=== PATIENT | female | born 2000 | race Caucasian/White ===

== ENCOUNTER 2023-01-23 12:16 | Outpatient (CLI) | payer BC, SELFPAY ==
[2023-01-23 13:01] LABS: Hematocrit 44.3 % (37.0-47.0); Hemoglobin 14.3 g/dL (12.0-15.0); Mean Corpuscular HGB Conc 32.3 g/dl (32-36); Mean Corpuscular Hemoglobin 28.7 pg (26-34); Mean Corpuscular Volume 88.8 fl (80-100); Platelet Count Result 343 k/mm3 (150-375); Red Blood Count 4.99 M/mm3 (4.2-5.4); Red Cell Distribution Width 12.8 % (11.5-14.5); White Blood Count 8.7 K/mm3 (4.5-10.0)
[2023-01-23 13:23] LABS: Alanine Aminotransferase 22 U/L (6-35); Albumin Level 4.2 g/dL (3.5-5.1); Alkaline Phosphatase 51 U/L (38-126); Anion Gap 5 mmol/L (8-16); Aspartate Amino Transferase 28 U/L (14-36); Bilirubin,Total 0.9 mg/dL (0.2-1.3); Blood Urea Nitrogen 12 mg/dL (7-17); CRP < 0.5 mg/dL (<1.0); Calcium 8.9 mg/dL (8.4-10.2); Carbon Dioxide 28 mmol/L (22-30); Chloride 104 mmol/L (98-107); Estimated Glomerular Filt Rate > 60; Glucose 81 mg/dL (65-110); Potassium 4.3 mmol/L (3.4-5.0); Sodium 137 mmol/L (137-145)
[2023-01-23 13:37] LABS: Erythrocyte Sedimentation Rate 2 mm/hr (0-20)
== END 2023-01-23 12:17 | disposition home or self-care (01) ==
PROVIDERS: PCP Family Medicine; Visit Provider Nurse Practitioner
DX: R19.7 Diarrhea, unspecified (principal); R10.32 Left lower quadrant pain; R15.9 Full incontinence of feces
CPT/HCPCS: 36415; 80053; 84443; 85027; 85652; 86140

== ENCOUNTER 2023-01-24 09:25 | Outpatient (CLI) | payer BC, SELFPAY ==
[2023-01-31 18:07] LABS: Pancreatic Elastase, Stool >500 mcg/g
[2023-01-31 22:08] LABS: Calprotectin, Stool 46 mcg/g
== END 2023-01-24 09:26 | disposition home or self-care (01) ==
LOC: ANHLAB 09:26
PROVIDERS: PCP Family Medicine; Visit Provider Nurse Practitioner
DX: R19.7 Diarrhea, unspecified (principal); R15.9 Full incontinence of feces; R10.32 Left lower quadrant pain
CPT/HCPCS: 82653; 83993

== ENCOUNTER 2024-08-25 10:46 | Outpatient (CLI) | payer BC, SELFPAY ==
--- OUTSIDE RECORDS SUMMARY | 2024-08-25 12:19 | XMS_ITS | Encounter Summary ---
Author Organization [facility] Address [address] [place] [address] Care Team Providers Care Actuarial Mathematician Name Role Phone Lilli Feliciano MD Primary Care Provider [phone] Encounter Details Date Type Department Care Team (Late st Contact Info) Description 05/25/2019 [facility] Outpatient Visit [facility] [address] [place] [address] Document, Scanned Social History Tobacco Use Types Packs/Day Years Used Date Smoking Tobacco: Never Assessed Sex and Gender Information Value Date Recorded Sex Assigned at Not on file Gender Identity Not on file Sexual Orientation Not on file documented as of this encounter Plan of Treatment Not on file documented as of this encounter Goals Goal Patient Goal Type Associated Problems Recent Progress Patient-Stated? Author Use safety retraint in car Lifestyle On track( 020 11:40 AM CDT) No Simona Pineda RN documented as of this encounter Visit Diagnoses Not on filedocumented in this encounter Care Teams Actuarial Mathematician Relationship Specialty Start Date End Date Lilli Feliciano MD PCP - General Pediatrics 07/21/18 documented as of this encounter
--- OUTSIDE RECORDS SUMMARY | 2024-08-25 12:19 | XMS_ITS | Clinical Summary ---
Author Organization [facility] [employer] Address [address] [place] [address] Care Team Providers Care Organ Pipe Voicer Name Role Phone Lilli Feliciano MD Primary Care Provider [phone] Source Comments [facility] [employer],non-owned Affiliates and Associated Physician Practices is amultiple site organization consisting of ambulatory clinics and hospital sitesin [place], [place], [place] and [place]. This disclosure is being madepursuant to the Care Everywhere program and may not contain all information available regarding this patient. Last updated 18.[facility] [employer] Allergies No known active allergies Medications * Be aware that medications may not be up to date on this document. Alwaysverify current medications with the patient. 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 Malocclusion 03/02/2020 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 Arthralgia of both ankles 03/02/2020 Cross bite 03/02/2020 Jaw pain 03/02/2020 Pain in joint, multiple sites 03/02/2020 Underweight 03/05/2014 Resolved Problems Problem Noted Date Diagnosed Date Resolved Date Asthma, moderate persistent, well-controlled 3 03/25/2017 Encounters Date Type Department Care Team Description 08/18/2024 Telephone [facility] - Pediatrics [address] [place] [address] [address] [place] [address] Lilli Feliciano MD Record Request from Last 3 Months Immunizations Name Administration Dates Next Due Cov[employer]hes[employer] primary monoval ent 12+ yr 0.3mL Purple cap 01/11/2021,12/21/2020 DTaP VACCINE IM (6wk-6yrs) 10/30/2007,,2002,09/03,2002 HEP A PEDS 2 DOSE 10/30/2007,12/18/2006 HEP B VACCINE, PED/ADOL 01/27/2003,2002, HIB BOOSTER 11/10/2003, 3,2002,07/02 MENINGOCOCCAL CONJUGATE (MCV4P) 02/16/2019,03/04 MMR 12/18/2006,05/09/2003 PNEUMOCOCCAL CONJ, PEDS 05/09/2003,11/22,2002,07/02 POLIO IPV 10/30/2007, 4,2002,07/02 PPD 05/09/2003 TDAP (7yrs+) 03/04/2014 VARICELLA 12/18/2006,11/10/2003 Family History Medical History Relation Name Comments None Known Father Diabetes - Type 2 Maternal Grandfather Diabetes - Type 2 Maternal Grandmother None Known Mother Thyroid Disease Paternal Aunt Craniofacial Syndrome Neg Hx Lupus Neg Hx Psoriasis Neg Hx Relation Name Status Comments Father Maternal Grandfather Maternal Grandmother Mother Paternal Aunt Social History Tobacco Use Types Packs/Day Years Used Date Smoking Tobacco: Passive Smo ke Exposure - Never Smoker Smokeless Tobacco: Never Alcohol Use Standard Drinks/Week Comments Never 0 (1 standard drink = 0.6 oz pur e alcohol) AUDIT-C Answer Date Recorded Q1: How often do you have a drink containing alc ohol? 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 OPERATOR Inhaled Oxygen Concentration - - Weight 41.3 kg (91 lb) 03/02/2021 10:48 AM CDT Height 156.2 cm (5' 1.5 ) 03/02/2021 10:48 AM CD T Body Mass Index 16.92 03/02/2021 10:48 AM CDT Plan of Treatment Health Maintenance Due Date Last Done Comments PAP SMEAR 2002 HIV SCREENING 2017 CHLAMYDIA/GONORRHEA SCREENING 2018 MENINGOCOCCAL (Group B) VACC INE (1 of 2 - Standard) 2018 HEPATITIS C SCREENING 04/19/2020 DTAP/TDAP/TD VACCINES (7 - T d or Tdap) 03/04/2024 03/04/2014, 10/30/2007, 11/10/2003, Additional history exists COVID-19 VACCINE (3 - 2023-2 5 season) 2024 01/11/2021, 12/21/2020 INFLUENZA VACCINE (#1) 2024 DEPRESSION SCREENING 07/21/2024 ZOSTER VACCINE (1 of 2) 2052 HEPATITIS B VACCINE Completed 01/27/2003, 2002, 2002 PNEUMOCOCCAL VACCINE Completed 05/09/2003, 2002, 2002, Additional history exists HIB VACCINE Completed 11/10/2003, 05/0 11/2002, 2002, Additional history exists MENINGOCOCCAL VACCINE Completed 02/16/2019, 014 HPV VACCINE Discontinued Goals Goal Patient Goal Type Associated Problems Recent Progress Patient-Stated? Author Use safety retraint in car Lifestyle On track( 020 11:40 AM CDT) Simona Price RN Care Teams Organ Pipe Voicer Relationship Specialty Start Date End Date Lilli Feliciano MD PCP - General Pediatrics 07/21/18
--- OUTSIDE RECORDS SUMMARY | 2024-08-25 12:19 | XMS_ITS | Clinical Summary ---
Author Organization [facility] Address [address] [place] [id number] Care Team Providers Care Furs Salesperson Name Role Phone Unavailable Primary Care Provider Unavailabl e Allergies No known active allergies Social History Tobacco Use Types Packs/Day Years Used Date Smoking Tobacco: Never Assessed Comments Unknown Sex and Gender Information Value Date Recorded Sex Assigned at Not on file Legal Sex Female 2:39 PM CDT Gender Identity Not on file Sexual Orientation Not on file Plan of Treatment Health Maintenance Due Date Last Done Comments CHLAMYDIA SCREENING (ANNUAL) 11-24 YEARS 2013 HPV VACCINES (1 - 3-dose series) 2017 CERVICAL CANCER SCREENING 2023 INFLUENZA VACCINE (#1) 2024 DTAP/TDAP/TD VACCINES (7 - Td or Tdap) 03/04/2024 03/04/2014, 10/30/2007, 11/10/2003, Additional history exists COVID-19 Vaccine ( season) 2024 01/11/2021, 12/21/2020 HEPATITIS B VACCINES Completed 01/27/2003, 2002, 2002 PNEUMOCOCCAL VACCINE 0-64 YEARS Aged Out No longer eligible based on patient's age to complete this topic Insurance BC[employer] BLUE ACCESS/TRUE BLUE PPO
--- OUTSIDE RECORDS SUMMARY | 2024-08-25 12:19 | XMS_ITS | Patient Health Summary ---
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 This disclosure is being madepursuant to the Care Everywhere program and may not contain all information available regarding this patient. Last updated 18.[facility] Allergies No known active allergies Medications * Be aware that medications may not be up to date on this document. Alwaysverify current medications with the patient. 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 Malocclusion 03/02/2020 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 Arthralgia of both ankles 03/02/2020 Cross bite 03/02/2020 Jaw pain 03/02/2020 Pain in joint, multiple sites 03/02/2020 Underweight 03/05/2014 Resolved Problems Problem Noted Date Diagnosed Date Resolved Date Asthma, moderate persistent, well-controlled 3 03/25/2017 Immunizations * Covid Hypercontext primary monovalent 12+ yr 0.3mL Purple cap(Given 01/11/2021, 12/21/2020) * DTaP VACCINE IM (6wk-6yrs)(Given 10/30/2007, 11/10/2003, 2002, 2002, 2002) * HEP A PEDS 2 DOSE(Given 10/30/2007, 12/18/2006) * HEP B VACCINE, PED/ADOL(Given 01/27/2003, 2002, 2002) * HIB BOOSTER(Given 11/10/2003, 2002, 2002, 2002) * MENINGOCOCCAL CONJUGATE (MCV4P)(Given 02/16/2019, 03/04/2014) * MMR(Given 12/18/2006, 05/09/2003) * PNEUMOCOCCAL CONJ, PEDS(Given 05/09/2003, 2002, 2002, 2002) * POLIO IPV(Given 10/30/2007, 11/10/2003, 2002, 2002) * PPD(Given 05/09/2003) * TDAP (7yrs+)(Given 03/04/2014) * VARICELLA(Given 12/18/2006, 11/10/2003) Social History Tobacco Use Types Packs/Day Years [...] CDT Oxygen Saturation 97% 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 Oxygen Concentration - - Weight 41.3 kg (91 lb) 03/02/2021 10:48 AM CDT Height 156.2 cm (5' 1.5 ) 03/02/2021 10:48 AM CD T Body Mass Index 16.92 03/02/2021 10:48 AM CDT Procedures * TSH(Performed 03/17/2020) Performed for Arthralgia of both ankles, Jaw pain * TISSUE TRANSGLUTAMINASE AB IGA(Performed 03/17/2020) Performed for Arthralgia of both ankles, Jaw pain * RHEUMATOID FACTOR BLOOD QUANTITATIVE(Performed 03/17/2020) Performed for Arthralgia of both ankles, Jaw pain * CYCLIC CITRUL PEPTIDE ANTIBODY IGG/IGA (CCP)(Performed 03/17/2020) Performed for Arthralgia of both ankles, Jaw pain * C-REACTIVE PROTEIN(Performed 03/17/2020) Performed for Arthralgia of both ankles, Jaw pain * COMPREHENSIVE METABOLIC PANEL(Performed 03/17/2020) Performed for Arthralgia of both ankles, Jaw pain * JAZMIN BLOOD SCREEN W/REFLEX TITER(Performed 03/17/2020) Performed for Arthralgia of both ankles, Jaw pain * IMMUNOGLOBULINS IGG/IGM/IGA PANEL(Performed 03/17/2020) Performed for Arthralgia of both ankles, Jaw pain * ERYTHROCYTE SEDIMENTATION RATE(Performed 03/17/2020) Performed for Arthralgia of both ankles, Jaw pain * CBC W AUTO DIFFERENTIAL(Performed 03/17/2020) Performed for Arthralgia of both ankles, Jaw pain * MRI TMJ BILATERAL JOINTS(Performed 03/17/2020) Performed for Condylar resorption of temporomandibular joint, Jaw anomaly, Malocclusion, Unilateralcondylar hypoplasia of mandible, Overjet * XR ANKLE LEFT 2VW(Performed 03/17/2020) Performed for Arthralgia of both ankles * XR ANKLE RIGHT 2VW(Performed 03/17/2020) Performed for Arthralgia of both ankles * CT FACIAL BONES WO CONTRAST(Performed 03/17/2020) Performed for Condylar resorption of temporomandibular joint, Jaw anomaly, Malocclusion, Unilateralcondylar hypoplasia of mandible, Overjet * LIPID PROFILE+GLUCOSE - POINT OF CARE (AMB)(Performed 02/16/2019) Performed for Well adolescent visit * CULTURE STREP GROUP A(Performed 06/01/2015) Performed for Acute pharyngitis, unspecified etiology * STREP A SCREEN - POINT OF CARE (AMB)(Performed 06/01/2015) Performed for Acute pharyngitis, unspecified etiology * XR HIP RIGHT 2VW OR MORE(Performed 11/18/2014) Performed for Right hip pain * CULTURE AEROBIC+GRAM STAIN(Performed 10/19/2012) Performed for Sore throat * STREP A SCREEN - POINT OF CARE (AMB)(Performed 10/19/2012) Performed for Sore throat * STREP A SCREEN - POINT OF CARE (AMB)(Performed 11/11/2011) Performed for Streptococcal pharyngitis * CULTURE AEROBIC+GRAM STAIN(Performed 11/12/2010) Performed for Acute pharyngitis * STREP A SCREEN - POINT OF CARE (AMB)(Performed 11/12/2010) Performed for Acute pharyngitis * STREP A SCREEN - POINT OF CARE (AMB)(Performed 10/31/2010) Performed for Sore throat * CULTURE AEROBIC+GRAM STAIN(Performed 10/31/2010) Performed for Sore throat * STREP A SCREEN - POINT OF CARE (AMB)(Performed 06/29/2010) Performed for Streptococcal sore throat * CULTURE AEROBIC+GRAM STAIN(Performed 06/08/2009) Performed for Acute Pharyngitis * STREP A SCREEN - POINT OF CARE (AMB)(Performed 06/08/2009) Performed for Acute Pharyngitis Results * CYCLIC CITRUL PEPTIDE ANTIBODY IGG/IGA (CCP) (03/17/2020 3:14 PM CDT) CCP Antibodies IgG/IgA 4 0 - 19 units 03/19/2020 9:06 PM CDT [facility] ([facility]) Comment: ?Negative ? <20 ?Weak positive ?20 - 39 ?Moderate positive ??40 - 59 ?Strong positive ?>59 Blood BLOOD SPECIMEN / Unknown Venipuncture / Unknown 03/17/2020 3:14 PM CDT 03/17/2020 3:27 PM CDT Narrative [facility] ([facility]) - 03/19/2020 9:06 PM CDT Performed at: ??01 - [facility] [address] ??[id number] Sound Installation Worker: Mir Torres MD, Phone: ??[phone] Andrei Samayoa DO LAB - SEROLO GY ORDERABLES [facility] ([facility]) [address] [place] [address] * TISSUE TRANSGLUTAMINASE AB IGA (03/17/2020 3:14 PM CDT) TTG Antibody IgA <2 0 - 3 U/mL 03/18/2020 6:07 PM CDT [facility] ([facility]) Comment: ?Negative ?0 - ??3 ?Weak Positive ?? 4 - 10 ?Positive ? >10 Tissue Transglutaminase (tTG) has been identified as the endomysial antigen. ??Studies have demonstr- ated that endomysial IgA antibodies have over 99% specificity for gluten sensitive enteropathy. Blood BLOOD SPECIMEN / Unknown Venipuncture / Unknown 03/17/2020 3:14 PM CDT 03/17/2020 3:27 PM CDT Narrative [facility] ([facility]) - 03/18/2020 6:07 PM CDT Performed at: ??01 - [facility] [place] [address] [place], [place] ??[id number] Sound Installation Worker: Perico Bennett PhD, Phone: ??[phone] Andrei Samayoa DO LAB - SEROLO GY ORDERABLES Performing Organization Address [facility]/ZIP Co de Phone Number [facility] ([facility]) [address] [place] [address] * RHEUMATOID FACTOR BLOOD QUANTITATIVE (03/17/2020 3:14 PM CDT) Rheumatoid Factor Quantitative 12 <15 IU/mL 03/17/2020 4:05 PM CDT [facility] Blood BLOOD SPECIMEN / Unknown Venipuncture / Unknown 03/17/2020 3:14 PM CDT 03/17/2020 3:26 PM CDT Andrei Samayoa DO LAB - CHEMIS TRY ORDERABLES Performing Organization Address [facility]/ZIP Co de Phone Number [facility] [address] [place] [address] * C-REACTIVE PROTEIN (03/17/2020 3:14 PM CDT) C-Reactive Protein <0.20 <=0.50 mg/dL 03/17/2020 4:05 PM CDT [facility] Blood BLOOD SPECIMEN / Unknown Venipuncture / Unknown 03/17/2020 3:14 PM CDT 03/17/2020 3:26 PM CDT Andrei Samayoa DO LAB - CHEMIS TRY ORDERABLES Performing Organization Address City/[facility]/ZIP Co de Phone Number [facility] [address] [place] [address] * JAZMIN BLOOD SCREEN W/REFLEX TITER (03/17/2020 3:14 PM CDT) Pathologist [facility] JAZMIN Negative Negative 03/20/2020 12:21 PM CDT [facility] Blood BLOOD SPECIMEN / Unknown Venipuncture / Unknown 03/17/2020 3:14 PM CDT 03/17/2020 3:27 PM CDT [facility] - 03/20/2020 12:21 PM CDT Methodology: Indirect Immunofluorescence Assay (IFA) utilizing Hep-2-Gamma cells. Andrei Kerns Yao DO LAB - CHEMIS TRY ORDERABLES Performing Organization Address [facility] Co de Phone Number [facility] [address] [place] [address] * (ABNORMAL) COMPREHENSIVE METABOLIC PANEL (03/17/2020 3:14 PM CDT) Pathologist [facility] Glucose 83 70 - 105 mg/dL 03/17/2020 3:57 PM CDT [facility] Sodium 142 136 - 145 mmol/L 03/17/2020 3:57 PM CDT [facility] Potassium 4.7 3.5 - 5.1 mmol/L 03/17/2020 3:57 PM CDT [facility] Chloride 108(H) 98 - 107 mmol/L 03/17/2020 3:57 PM CDT [facility] CO2 22 20 - 28 mmol/L 03/17/2020 3:57 PM CDT [facility] Calcium 9.05(L) 9.08 - 10.48 mg/dL 03/17/2020 3:57 PM CDT [facility] Anion Gap 12 5 - 20 mmol/L 03/17/2020 3:57 PM CDT [facility] BUN 10.9 5.3 - 18.7 mg/dL 03/17/2020 3:57 PM CDT [facility] Creatinine 0.79 0.61 - 1.07 mg/dL 03/17/2020 3:57 PM CDT [facility] Alkaline Phosphatase 56(L) 100 - 390 U/L 03/17/2020 3:57 PM CDT [facility] ALT 13 8 - 65 U/L 03/17/2020 3:57 PM CDT [facility] AST 26 3 - 35 U/L 03/17/2020 3:57 PM CDT [facility] Protein Total 7.4 6.3 - 8.2 gm/dL 03/17/2020 3:57 PM CDT [facility] Albumin 4.2 3.3 - 4.9 gm/dL 03/17/2020 3:57 PM CDT [facility] Bilirubin Total 0.7 0.3 - 1.2 mg/dL 03/17/2020 3:57 PM CDT [facility] eGFR by MDRD 03/17/2020 3:57 PM CDT [facility] Comment: eGFR calculations are not performed for children under 18 years old. eGFR by MDRD 03/17/2020 3:57 PM CDT [facility] Comment: eGFR calculations are not performed for children under 18 years old. Blood BLOOD SPECIMEN / Unknown Venipuncture / Unknown 03/17/2020 3:14 PM CDT 03/17/2020 3:26 PM CDT Andrei Samayoa DO LAB - CHEMIS TRY ORDERABLES Performing Organization Address City/[facility]/ZIP Co de Phone Number [facility] [address] [place] [phone] * TSH (03/17/2020 3:14 PM CDT) TSH 0.97 0.35 - 4.95 uIU/mL 03/17/2020 4:25 PM CDT [facility] Blood BLOOD SPECIMEN / Unknown Venipuncture / Unknown 03/17/2020 3:14 PM CDT 03/17/2020 3:26 PM CDT Andrei Samayoa DO LAB - CHEMIS TRY ORDERABLES Performing Organization Address [facility]/ZIP Co de Phone Number [facility] [address] [place] [address] * MRI TMJ BILATERAL JOINTS (03/17/2020 3:13 PM CDT) Anatomical Region Laterality Modality Head Magnetic Resonan ce 03/17/2020 4:58 PM CDT Impressions 03/19/2020 2:23 PM CDT Symmetric, small, flattened appearing mandibular condyles. Findings may correlate with mandibular hypoplasia versus idiopathic condylar resorption. *Reading Radiologist: Julisa Pena on 03/19/2020 at 2:23 PM Narrative 03/19/2020 2:23 PM CDT INDICATION: 19-year-old female with temporomandibular joint disorder COMPARISON: CT of same date. TECHNICAL: Multiplanar, multisequence imaging of the temporomandibular joints was performed without and with IV contrast as per departmental protocol. 3.7 cc of Gadavist were administered intravenously FINDINGS: No intracranial abnormality is seen. The temporomandibular grooves are normal in appearance. The mandibular condyles are somewhat small in appearance with associated flattening. There is no evidence of underlying marrow edema. There is normal motion of the condyles over the articular eminences. The articular discs are normal and without displacement between open and closed mouth views. No abnormal synovial enhancement or joint effusion is seen bilaterally. Procedure Note Julisa Pena MD - 03/19/2020 INDICATION: 19-year-old female with temporomandibular joint disorder COMPARISON: CT of same date. TECHNICAL: Multiplanar, multisequence imaging of the temporomandibular joints was performed without and with IV contrast as per departmental protocol. 3.7 cc of Gadavist were administered intravenously FINDINGS: No intracranial abnormality is seen. The temporomandibular grooves are normal in appearance. The mandibular condyles are somewhat small in appearance with associated flattening. There is no evidence of underlying marrow edema. There is normal motion of the condyles over the articular eminences. The articular discs are normal and without displacement between open and closed mouth views. No abnormal synovial enhancement or joint effusion is seen bilaterally. IMPRESSION Symmetric, small, flattened appearing mandibular condyles. Findings may correlate with mandibular hypoplasia versus idiopathic condylar resorption. *Reading Radiologist: Julisa Pena on 03/19/2020 at 2:23 PM Lupe Moody HOUSEKEEPER CLEANING COOKING-MRI SPECIAL PROCEDURES TECHNOLOGIST MR ORDERABLES * ESR - SED RATE WESTERGREN AUTO (03/17/2020 3:13 PM CDT) Pathologist [facility] Erythrocyte Sedimentation Rate Automated 3 0 - 20 MM/HR 03/17/2020 3:43 PM CDT [facility] Blood BLOOD SPECIMEN / Unknown Venipuncture / Unknown 03/17/2020 3:13 PM CDT 03/17/2020 3:26 PM CDT Andrei Kerns Yao DO LAB - HEMATO LOGY ORDERABLES [facility] [address] [place] [address] * (ABNORMAL) CBC W AUTO DIFFERENTIAL (03/17/2020 3:13 PM CDT) [facility] WBC 11.0 4.5 - 11.0 x10E9/L 03/17/2020 3:45 PM CDT [facility] WBC Corrected 03/17/2020 3:45 PM CDT [facility] RBC 4.82 4.10 - 5.10 x10E12/L 03/17/2020 3:45 PM CDT [facility] Hemoglobin 13.4 12.0 - 16.0 gm/dL 03/17/2020 3:45 PM CDT [facility] Hematocrit 40.6 36.0 - 47.0 % 03/17/2020 3:45 PM CDT [facility] MCV 84.2 78.0 - 98.0 fl 03/17/2020 3:45 PM CDT [facility] MCH 27.8 25.0 - 35.0 pg 03/17/2020 3:45 PM CDT [facility] MCHC 33.0 31.0 - 37.0 gm/dL 03/17/2020 3:45 PM CDT [facility] Platelet Count 328 100 - 400 x10E9/L 03/17/2020 3:45 PM CDT [facility] RDW-CV 12.7 11.5 - 14.0 % 03/17/2020 3:45 PM CDT [facility] MPV 10.5(H) 6.0 - 9.5 fl 03/17/2020 3:45 PM CDT [facility] Neutrophils % 63.0 31.0 - 78.0 % 03/17/2020 3:45 PM CDT [facility] Lymphocytes % 28.9 13.0 - 54.0 % 03/17/2020 3:45 PM CDT [facility] Monocytes % 6.8 4.0 - 13.0 % 03/17/2020 3:45 PM CDT [facility] Eosinophils % 0.5 0.0 - 8.0 % 03/17/2020 3:45 PM CDT [facility] Basophils % 0.5 % 03/17/2020 3:45 PM CDT [facility] Immature Granulocytes 0.3 % 03/17/2020 3:45 PM CDT [facility] Neutrophil Absolute 6.90 1.4 - 8.58 x10E9/L 03/17/2020 3:45 PM CDT [facility] Lymphocytes Absolute 3.16 0.59 - 5.94 x10E9/L 03/17/2020 3:45 PM CDT [facility] Monocytes Absolute 0.75 0.18 - 1.43 x10E9/L 03/17/2020 3:45 PM CDT [facility] Eosinophils Absolute 0.06 0 - 0.88 x10E9/L 03/17/2020 3:45 PM CDT [facility] Basophils Absolute 0.05 0 - 0.22 x10E9/L 03/17/2020 3:45 PM CDT [facility] Immature Granulocytes Absolute 0.03 0 - 0.11 x10E9/L 03/17/2020 3:45 PM CDT [facility] nRBC Auto 0 /100 WBC 03/17/2020 3:45 PM CDT [facility] Blood BLOOD SPECIMEN / Unknown Venipuncture / Unknown 03/17/2020 3:13 PM CDT 03/17/2020 3:26 PM CDT Andrei Samayoa DO LAB - HEMATO LOGY ORDERABLES Performing Organization Address City/State/[facility] Co de Phone Number [facility] [address] [place] [address] * IMMUNOGLOBULINS PANEL (inc IgA, IgG, IgM) (03/17/2020 3:13 PM CDT) Pathologist [facility] IgA 127 65 - 421 mg/dL 03/17/2020 4:05 PM CDT [facility] IgG 967 552-1,631 mg/dL 03/17/2020 4:05 PM CDT [facility] IgM 84 33 - 293 mg/dL 03/17/2020 4:05 PM CDT [facility] Blood BLOOD SPECIMEN / Unknown Venipuncture / Unknown 03/17/2020 3:13 PM CDT 03/17/2020 3:26 PM CDT Andrei Samayoa DO LAB - CHEMIS TRY ORDERABLES [facility] [place] [address] * XR ANKLE LEFT 2VW (03/17/2020 1:57 PM CDT) Anatomical Region Laterality Modality Lower Extremity Radiographic Raquel ging 03/17/2020 12:4 0 PM CDT Impressions 03/20/2020 8:47 PM CDT No fracture or dislocation. Reading Radiologist: Stu Springer on 03/20/2020 at 8:47 PM Narrative 03/20/2020 8:47 PM CDT INDICATION: Pain COMPARISON: None available. TECHNIQUE: Frontal and lateral views of the left ankle. FINDINGS: There is no fracture or osseous abnormality. The joint alignment, including the tibiotalar articulation, is normal. The soft tissues are normal without evidence of joint effusion. Procedure Note Rubio Springer DO - 03/20/2020 INDICATION: Pain COMPARISON: None available. TECHNIQUE: Frontal and lateral views of the left ankle. FINDINGS: There is no fracture or osseous abnormality. The joint alignment, including the tibiotalar articulation, is normal. The soft tissues are normal without evidence of joint effusion. IMPRESSION No fracture or dislocation. Reading Radiologist: Stu Springer on 03/20/2020 at 8:47 PM Andrei Samayoa DO DIAGNOSTIC I MAGING ORDERABLES * XR ANKLE RIGHT 2VW (03/17/2020 1:56 PM CDT) Anatomical Region Laterality Modality Lower Extremity Radiographic Raquel ging 03/17/2020 12:4 1 PM CDT Impressions 03/20/2020 8:48 PM CDT No fracture or dislocation. Reading Radiologist: Stu Springer on 03/20/2020 at 8:48 PM Narrative 03/20/2020 8:48 PM CDT INDICATION: Pain COMPARISON: None available. TECHNIQUE: Frontal and lateral views of the right ankle. FINDINGS: There is no fracture or osseous abnormality. The joint alignment, including the tibiotalar articulation, is normal. The soft tissues are normal without evidence of joint effusion. Procedure Note Rubio Springer, DO - 03/20/2020 INDICATION: Pain COMPARISON: None available. TECHNIQUE: Frontal and lateral views of the right ankle. FINDINGS: There is no fracture or osseous abnormality. The joint alignment, including the tibiotalar articulation, is normal. The soft tissues are normal without evidence of joint effusion. IMPRESSION No fracture or dislocation. Reading Radiologist: Stu Springer on 03/20/2020 at 8:48 PM Andrei Samayoa DO DIAGNOSTIC I MAGING ORDERABLES * CT FACIAL BONES WO CONTRAST (03/17/2020 1:52 PM CDT) Anatomical Region Laterality Modality Head Computed Tomogra phy 03/17/2020 3:11 PM CDT Impressions 03/17/2020 4:32 PM CDT Symmetric, small, flattened appearing mandibular condyles. Findings may correlate with condylar hypoplasia versus idiopathic condylar resorption. No evidence of osseous erosion. Temporomandibular grooves are normal in appearance. Dictated by Radha Juares on 03/17/2020 3:16 PM I, Julisa Pena, have personally reviewed the images and I agree with this report. *Reading Radiologist: Julisa Pena on 03/17/2020 at 4:32 PM Narrative 03/17/2020 4:32 PM CDT INDICATION: Disorder of the TMJ COMPARISON: None available. TECHNIQUE: Contiguous axial images obtained through the head without the administration of IV contrast. Coronal and sagittal images were post processed. 3-D volume rendering of the facial bones was performed. DOSE: CTDI: 20 mGy, DLP: 346 mGy-cm The reported CTDIvol (mGy) and DLP (mGy-cm) values are generated from scan acquisition factors based on 32 cm (body) or 16 cm (head) phantoms and may underestimate or overestimate the actual patient dose based on patient size and other factors. FINDINGS: The temporomandibular grooves are normal in appearance. The mandibular condyles are somewhat small in appearance with associated flattening. No evidence of osseous erosion or other focal osseous lesion. No evidence of fracture. No maxillomandibular malocclusion is appreciated. The orbits appear normal. The paranasal sinuses are clear. The mastoid air cells are clear. No soft tissue abnormality is identified. The imaged brain, orbits and soft tissues of the face and neck are normal. Procedure Note Julisa Pena MD - 03/17/2020 INDICATION: Disorder of the TMJ COMPARISON: None available. TECHNIQUE: Contiguous axial images obtained through the head without the administration of IV contrast. Coronal and sagittal images were post processed. 3-D volume rendering of the facial bones was performed. DOSE: CTDI: 20 mGy, DLP: 346 mGy-cm The reported CTDIvol (mGy) and DLP (mGy-cm) values are generated from scan acquisition factors based on 32 cm (body) or 16 cm (head) phantoms and may underestimate or overestimate the actual patient dose based on patient size and other factors. FINDINGS: The temporomandibular grooves are normal in appearance. The mandibular condyles are somewhat small in appearance with associated flattening. No evidence of osseous erosion or other focal osseous lesion. No evidence of fracture. No maxillomandibular malocclusion is appreciated. The orbits appear normal. The paranasal sinuses are clear. The mastoid air cells are clear. No soft tissue abnormality is identified. The imaged brain, orbits and soft tissues of the face and neck are normal. IMPRESSION Symmetric, small, flattened appearing mandibular condyles. Findings may correlate with condylar hypoplasia versus idiopathic condylar resorption. No evidence of osseous erosion. Temporomandibular grooves are normal in appearance. Dictated by Radha Juares on 03/17/2020 3:16 PM I, Julisa Pena, have personally reviewed the images and I agree with this report. 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 Strep A Rapid POCT Negative Negative Strep A Internal Control Other (qualifier value) ENTIRE THROAT (SURFACE REGION OF NECK) / Unknown 06/01/2015 Lizbeth Faria HOUSEKEEPER CLEANING COOKING-MRI SPECIAL PROCEDURES TECHNOLOGIST LAB - POINT OF CA RE ORDERABLES * XR HIP 2+ VW RIGHT (11/18/2014) Anatomical Region Laterality Modality Pelvis, Lower Extremity Other Lilli Feliciano MD DIAGNOSTIC IMAGING O RDERABLES * CULTURE ROUTINE (10/19/2012 4:39 PM CDT) Only the most recent of4 resultswithin the time period is included. Aerobic Bacterial Culture Final report [facility] ACCOUNT BILL Result 1 [facility] ACCOUNT BILL Comment:Routine respiratory yissel ENTIRE PHARYNX / Unknown 10/19/2012 4:39 PM CDT 10/19/2012 9:02 PM CDT Narrative Resulting Agency Comment [facility] [place] [id number] [facility] ??[facility] [id number] Lilli Feliciano MD LAB - MICROBIOLOGY O RDERABLES [facility] ACCOUNT BILL Care Teams Dusting And Brushing Machine Operator Relationship Specialty Start Date End Date Lilli Feliciano MD PCP - General Pediatrics 07/21/18
--- OUTSIDE RECORDS SUMMARY | 2024-08-25 12:19 | XMS_ITS | Referral Summary ---
Author Organization [facility] Address [address] [facility] [place] [address] Care Team Providers Care Party Plan Sales Agent Name Role Phone Lilli Feliciano MD Primary Care Provider [phone] Source Comments [facility],non-[facility] Affiliates and Associated Physician Practices is amultiple site organization consisting of ambulatory clinics and hospital sitesin [place], [place], [place] and [place]. This disclosure is being madepursuant to the Care Everywhere program and may not contain all information available regarding this patient. Last updated 18.[facility] Encounters Date Type Department Care Team Description 08/18/2024 Telephone [facility] - Pediatrics [address] [place] [address] [address] [place] [address] Lilli Feliciano MD Record Request from Last 3 Months Allergies No known active allergies Medications * [...] Asthma, moderate persistent, well-controlled 3 03/25/2017 Immunizations Name Administration Dates Next Due Halldis primary monoval ent 12+ yr 0.3mL Purple cap 01/11/2021,12/21/2020 DTaP VACCINE IM (6wk-6yrs) 10/30/2007,,2002,09/03,2002 HEP A PEDS 2 DOSE 10/30/2007,12/18/2006 HEP B VACCINE, PED/ADOL 01/27/2003,2002, HIB BOOSTER 11/10/2003, 3,2002,07/02 MENINGOCOCCAL CONJUGATE (MCV4P) 02/16/2019,03/04 MMR 12/18/2006,05/09/2003 PNEUMOCOCCAL CONJ, PEDS 05/09/2003,11/22,2002,07/02 POLIO IPV 10/30/2007, 4,2002,07/02 PPD 05/09/2003 TDAP (7yrs+) 03/04/2014 VARICELLA 12/18/2006,11/10/2003 Social History Tobacco Use Types Packs/Day Years [...] CDT Oxygen Saturation 97% 06/29/2010 9:54 AM REGISTERED NURSE SURGICAL SERVICES Inhaled Oxygen Concentration - - Weight 41.3 kg (91 lb) 03/02/2021 10:48 AM CDT Height 156.2 cm (5' 1.5 ) 03/02/2021 10:48 AM CD T Body Mass Index 16.92 03/02/2021 10:48 AM CDT Plan of Treatment Not on file Goals Goal Patient Goal Type Associated Problems Recent Progress Patient-Stated? Author Use safety retraint in car Lifestyle On track( 020 11:40 AM CDT) Simona Price RN Care Teams Party Plan Sales Agent Relationship Specialty Start Date End Date Lilli Feliciano MD PCP - General Pediatrics 07/21/18
== END 2024-08-25 10:47 | disposition home or self-care (01) ==
LOC: ANHAUDIO 10:46
PROVIDERS: PCP Family Medicine; Visit Provider Otolaryngology Otolaryngology/Facial Plastic Surgery
DX: H93.11 Tinnitus, right ear (principal); H83.2X1 Labyrinthine dysfunction, right ear; H69.83 Other specified disorders of Eustachian tube, bilateral
CPT/HCPCS: 92557; 92567

== ENCOUNTER 2024-08-25 14:50 | Outpatient (CLI) | payer BC, SELFPAY ==
--- NOTE | ~2024-08-25 | CT_ITS ---
EXAMINATION: CT sinus wo con DATE: 08/25/2024 15:02 INDICATION: Deviated nasal septum. TECHNIQUE: Computed tomography (CT) of the paranasal sinuses was performed without intravenous contra st. Iterative reconstruction technique was employed. The dose-length product was 296.82 mGy-cm. COMPARISON: None FINDINGS: The frontal sinuses are clear. There is mild mucosal thickening in the right ethmoid sinuse s. The sphenoid sinuses are clear. There is mild mucosal thickening in the bilateral maxillary sinuse s. There is leftward deviation of the nasal septum. There is henna bullosa involving right middle tu rbinate. There are bilateral Zheng cells. The ostiomeatal units are patent. There are sialoliths in the left parotid gland. IMPRESSION: 1. Mild mucosal thickening in the paranasal sinuses. 2. Leftward deviation of the nasal septum. Reviewed, dictated and finalized at location A. PRESIDENT OF TALENT ACQUISITION
== END 2024-08-25 14:51 | disposition home or self-care (01) ==
LOC: MICIMG 14:51
PROVIDERS: PCP Family Medicine; Visit Provider Otolaryngology Otolaryngology/Facial Plastic Surgery
DX: J34.89 Other specified disorders of nose and nasal sinuses (principal); J34.2 Deviated nasal septum; H69.91 Unspecified Eustachian tube disorder, right ear
CPT/HCPCS: 70486

== ENCOUNTER 2024-09-29 07:42 | Outpatient (CLI) | payer BC, SELFPAY ==
--- OUTSIDE RECORDS SUMMARY | 2024-09-14 07:53 | XMS_ITS | Clinical Summary ---
Author Organization [facility] Address [address] [place] [address] Care Team Providers Care Vice President Business Development Name Role Phone Unavailable Primary Care Provider [...] VACCINE (#1) 2024 DTAP/TDAP/TD VACCINES (7 - T d or Tdap) 03/04/2024 03/04/2014, 10/30/2007, 11/10/2003, Additional history exists COVID-19 Vaccine (2023-2 5 season) 2024 01/11/2021, 12/21/2020 HEPATITIS B VACCINES Completed 01/27/2003, 2002, 2002 Insurance [facility] BLUE ACCESS/TRUE BLUE PPO
--- OUTSIDE RECORDS SUMMARY | 2024-09-14 07:53 | XMS_ITS | Referral Summary ---
Author Organization [facility] Address [address] [facility] [place] [address] Care Team Providers Care Aircraft Maintenance Instructor Name Role Phone Lilli Feliciano MD Primary Care Provider [phone] Source Comments [facility] Affiliates and Associated Physician Practices is amultiple site organization consisting of ambulatory clinics and hospital sitesin [place], [place], [place] and [place]. This disclosure is being madepursuant to the Care Everywhere program and may not contain all information available regarding this patient. Last updated 18.[facility] Encounters Date Type Department Care Team Description 08/18/2024 Telephone [facility] - Pediatrics [address] [place] [address] [address] [place] [address] Lilli Feliciano MD Record [...] 03/25/2017 Immunizations Name Administration Dates Next Due Webbynode primary monoval ent 12+ yr 0.3mL Purple [...] 65 03/02/2021 10:48 AM CDT Temperature 36.5 C (97.7 F) 03/02/2021 10:48 AM CDT Respiratory Rate 16 05/12/2020 3:10 PM CDT Oxygen Saturation 97% 06/29/2010 9:54 AM MODEL BUILDER DISPLAY Inhaled Oxygen Concentration - - Weight 41.3 [...] 11:40 AM CDT) No Simona Pineda RN Care Teams Aircraft Maintenance Instructor Relationship Specialty Start Date End Date Lilli Feliciano MD PCP - General Pediatrics 07/21/18
--- OUTSIDE RECORDS SUMMARY | 2024-09-14 07:54 | XMS_ITS | Patient Health Summary ---
Author Organization [facility] Address [address] [place] [address] Care Team Providers Care Iron Piler Name Role Phone Lilli Feliciano MD Primary Care Provider [phone] Note from [facility],non-owned Affiliates and Associated Physician Practices is amultiple site organization consisting of ambulatory clinics and hospital sitesin [place], [place], [place] and [place]. This disclosure is being madepursuant to the Care Everywhere program and may not contain all information available regarding this patient. Last updated 18.[facility] Allergies No known active allergies Medications [...] persistent, well-controlled 3 03/25/2017 Immunizations * Covid OP3Nvoice primary monovalent 12+ yr 0.3mL Purple cap(Given [...] CDT Oxygen Saturation 97% 06/29/2010 9:54 AM FINAL CIGAR AND BOX EXAMINER Inhaled Oxygen Concentration - - Weight 41.3 [...] 03/19/2020 9:06 PM CDT [facility] ([facility]) Comment: Negative <20 Weak positive 20 - 39 Moderate positive 40 - 59 Strong positive >59 Blood BLOOD SPECIMEN / Unknown Venipuncture / Unknown 03/17/2020 3:14 PM CDT 03/17/2020 3:27 PM CDT [facility]ative [facility] - 03/19/2020 9:06 PM CDT Performed at: [address] [id number] Respiratory Care Assistant: Mir Torres MD, Phone: [phone] Andrei Samayoa DO LAB - SEROLO GY ORDERABLES Performing Organization Address [facility] Co de Phone Number [facility] ([facility]) [address] [place] [address] * TISSUE TRANSGLUTAMINASE AB IGA (03/17/2020 3:14 PM CDT) Pathologist [facility] TTG Antibody IgA <2 0 - 3 U/mL 03/18/2020 6:07 PM CDT [facility] ([facility]) Comment: Negative 0 - 3 Weak Positive 4 - 10 Positive >10 Tissue Transglutaminase (tTG) has been identified as the endomysial antigen. Studies have demonstr- ated that endomysial IgA antibodies have over 99% specificity for gluten sensitive enteropathy. Blood BLOOD SPECIMEN / Unknown Venipuncture / Unknown 03/17/2020 3:14 PM CDT 03/17/2020 3:27 PM CDT Narrative [facility] ([facility]) - 03/18/2020 6:07 PM CDT Performed at: [address] [place] [id number] Respiratory Care Assistant: Perico Bennett PhD, Phone: [phone] Andrei Reisnikkie TOBIAS LAB - SEROLO GY ORDERABLES Performing Organization Address [facility] de Phone Number [facility] [address] [place] [address] * RHEUMATOID FACTOR BLOOD QUANTITATIVE (03/17/2020 3:14 PM CDT) [facility] Rheumatoid Factor Quantitative 12 <15 IU/mL 03/17/2020 4:05 PM CDT [facility] Blood BLOOD SPECIMEN / Unknown Venipuncture / Unknown 03/17/2020 3:14 PM CDT 03/17/2020 3:26 PM CDT Andrei Kerns Yao TOBIAS LAB - CHEMIS TRY ORDERABLES Performing Organization Address [facility] Co de Phone Number [facility] [place] [address] * C-REACTIVE PROTEIN (03/17/2020 3:14 PM CDT) Pathologist [facility] C-Reactive Protein <0.20 <=0.50 mg/dL 03/17/2020 4:05 PM CDT [facility] Blood BLOOD SPECIMEN / Unknown Venipuncture / Unknown 03/17/2020 3:14 PM CDT 03/17/2020 3:26 PM CDT Andrei Luis F Yao TOBIAS LAB - CHEMIS TRY ORDERABLES Performing Organization Address [facility] Co de Phone Number [facility] [address] [place] [address] * JAZMIN BLOOD SCREEN W/REFLEX TITER (03/17/2020 3:14 PM CDT) [facility] JAZMIN Negative Negative 03/20/2020 12:21 PM CDT [facility] Blood BLOOD SPECIMEN / Unknown Venipuncture / Unknown 03/17/2020 3:14 PM CDT 03/17/2020 3:27 PM CDT Narrative [facility] - 03/20/2020 12:21 PM CDT Methodology: Indirect Immunofluorescence Assay (IFA) utilizing Hep-2-Gamma cells. Andrei Luis F Yao TOBIAS LAB - CHEMIS TRY ORDERABLES Performing Organization Address City/[facility] Co de Phone Number [facility] [address] [place] [address] * (ABNORMAL) COMPREHENSIVE METABOLIC PANEL (03/17/2020 3:14 PM CDT) Pathologist [facility] Glucose 83 70 - 105 mg/dL 03/17/2020 3:57 PM [facility] Sodium 142 136 - 145 mmol/L 03/17/2020 3:57 PM [facility] Potassium 4.7 3.5 - 5.1 mmol/L 03/17/2020 3:57 PM [facility] Chloride 108(H) 98 - 107 mmol/L 03/17/2020 3:57 PM [facility] CO2 22 20 - 28 mmol/L 03/17/2020 3:57 PM [facility] Calcium 9.05(L) 9.08 - 10.48 mg/dL 03/17/2020 3:57 PM [facility] Anion Gap 12 5 - 20 mmol/L 03/17/2020 3:57 PM [facility] BUN 10.9 5.3 - 18.7 mg/dL 03/17/2020 3:57 PM [facility] Creatinine 0.79 0.61 - 1.07 mg/dL 03/17/2020 3:57 PM [facility] Alkaline Phosphatase 56(L) 100 - 390 U/L 03/17/2020 3:57 PM [facility] ALT 13 8 - 65 U/L 03/17/2020 3:57 PM [facility] AST 26 3 - 35 U/L 03/17/2020 3:57 PM [facility] Protein Total 7.4 6.3 - 8.2 gm/dL 03/17/2020 3:57 PM [facility] Albumin 4.2 3.3 - 4.9 gm/dL 03/17/2020 3:57 PM [facility] Bilirubin Total 0.7 0.3 - 1.2 mg/dL 03/17/2020 3:57 PM [facility] eGFR by MDRD 03/17/2020 3:57 PM [facility] Comment: eGFR calculations are not performed for children under 18 years old. eGFR by MDRD 03/17/2020 3:57 PM [facility] Comment: eGFR calculations are not performed for children under 18 years old. Blood BLOOD SPECIMEN / Unknown Venipuncture / Unknown 03/17/2020 3:14 PM CDT 03/17/2020 3:26 PM [facility] Andrei Samayoa DO LAB - CHEMIS TRY ORDERABLES Performing Organization Address City/[facility]/ZIP Co de Phone Number [facility] [address] [place] [address] * TSH (03/17/2020 3:14 PM CDT) TSH 0.97 0.35 - 4.95 uIU/mL 03/17/2020 4:25 PM CDT [facility] Blood BLOOD SPECIMEN / Unknown Venipuncture / Unknown 03/17/2020 3:14 PM CDT 03/17/2020 3:26 PM CDT Andrei Samayoa DO LAB - CHEMIS TRY ORDERABLES Performing Organization Address [facility] Co de Phone Number [facility] [address] [place] [address] * MRI TMJ BILATERAL JOINTS (03/17/2020 3:13 [...] Pena on 03/19/2020 at 2:23 PM Lupe Mirian Fransisco SOFTWARE PRODUCT SPECIALIST-INSEAMER MR ORDERABLES * ESR - SED RATE WESTERGREN AUTO (03/17/2020 3:13 PM CDT) [facility] Erythrocyte Sedimentation Rate Automated 3 0 - 20 MM/HR 03/17/2020 3:43 PM CDT [facility] Blood BLOOD SPECIMEN / Unknown Venipuncture / Unknown 03/17/2020 3:13 PM CDT 03/17/2020 3:26 PM CDT Andrei Samayoa DO LAB - HEMATO LOGY ORDERABLES Performing Organization Address City/State/[facility] Co de Phone Number [facility] [address] [place] [address] * (ABNORMAL) CBC W AUTO DIFFERENTIAL (03/17/2020 3:13 PM CDT) Pathologist [facility] WBC 11.0 4.5 - 11.0 x10E9/L 03/17/2020 3:45 PM CDT [facility] WBC Corrected 03/17/2020 3:45 PM CDT [facility] RBC 4.82 4.10 - 5.10 x10E12/L 03/17/2020 3:45 PM CDT [facility] Hemoglobin 13.4 12.0 - 16.0 gm/dL 03/17/2020 3:45 PM [facility] Hematocrit 40.6 36.0 - 47.0 % 03/17/2020 3:45 PM [facility] MCV 84.2 78.0 - 98.0 fl 03/17/2020 3:45 PM [facility] MCH 27.8 25.0 - 35.0 pg 03/17/2020 3:45 PM [facility] MCHC 33.0 31.0 - 37.0 gm/dL 03/17/2020 3:45 PM [facility] Platelet Count 328 100 - 400 x10E9/L 03/17/2020 3:45 PM [facility] RDW-CV 12.7 11.5 - 14.0 % 03/17/2020 3:45 PM [facility] MPV 10.5(H) 6.0 - 9.5 fl 03/17/2020 3:45 PM [facility] Neutrophils % 63.0 31.0 - 78.0 % 03/17/2020 3:45 PM [facility] Lymphocytes % 28.9 13.0 - 54.0 % 03/17/2020 3:45 PM [facility] Monocytes % 6.8 4.0 - 13.0 % 03/17/2020 3:45 PM [facility] Eosinophils % 0.5 0.0 - 8.0 % 03/17/2020 3:45 PM [facility] Basophils % 0.5 % 03/17/2020 3:45 PM [facility] Immature Granulocytes 0.3 % 03/17/2020 3:45 PM [facility] Neutrophil Absolute 6.90 1.4 - 8.58 x10E9/L 03/17/2020 3:45 PM [facility] Lymphocytes Absolute 3.16 0.59 - 5.94 x10E9/L 03/17/2020 3:45 PM [facility] Monocytes Absolute 0.75 0.18 - 1.43 x10E9/L 03/17/2020 3:45 PM [facility] Eosinophils Absolute 0.06 0 - 0.88 x10E9/L 03/17/2020 3:45 PM [facility] Basophils Absolute 0.05 0 - 0.22 x10E9/L 03/17/2020 3:45 PM CDT [facility] Immature Granulocytes Absolute 0.03 0 - 0.11 x10E9/L 03/17/2020 3:45 PM CDT [facility] nRBC Auto 0 /100 WBC 03/17/2020 3:45 PM CDT [facility] Blood BLOOD SPECIMEN / Unknown Venipuncture / Unknown 03/17/2020 3:13 PM CDT 03/17/2020 3:26 PM CDT Andrei Samayoa DO LAB - HEMATO LOGY ORDERABLES Performing Organization Address City/[facility]/ZIP Co de Phone Number [facility] [place] [address] * IMMUNOGLOBULINS PANEL (inc IgA, IgG, IgM) (03/17/2020 3:13 PM CDT) IgA 127 65 - 421 mg/dL 03/17/2020 4:05 PM CDT [facility] IgG 967 552-1,631 mg/dL 03/17/2020 4:05 PM CDT [facility] IgM 84 33 - 293 mg/dL 03/17/2020 4:05 PM CDT [facility] Blood BLOOD SPECIMEN / Unknown Venipuncture / Unknown 03/17/2020 3:13 PM CDT 03/17/2020 3:26 PM CDT Andrei Samayoa DO LAB - CHEMIS TRY ORDERABLES Performing Organization Address City/[facility]/ZIP Co de Phone Number [facility] [address] [place] [address] * XR ANKLE LEFT 2VW (03/17/2020 1:57 [...] of joint effusion. Procedure Note Rubio Springer, - 03/20/2020 INDICATION: Pain COMPARISON: None available. [...] of joint effusion. Procedure Note Rubio Springer, - 03/20/2020 INDICATION: Pain COMPARISON: None available. [...] on 03/17/2020 at 4:32 PM Lupe Moody SOFTWARE PRODUCT SPECIALIST-INSEAMER CT ORDERABLES * LIPID PROFILE+GLUCOSE - POINT [...] CULTURE STREP GROUP A (06/01/2015 1:43 PM FINAL CIGAR AND BOX EXAMINER) Beta-Strep Culture, Group A Only Negative [facility] ACCOUNT BILL Miscellaneous samples (specimen) ENTIRE THROAT (SURFACE REGION OF NECK) / Unknown 06/01/2015 1:43 PM FINAL CIGAR AND BOX EXAMINER 06/01/2015 8:30 PM FINAL CIGAR AND BOX EXAMINER Narrative Resulting Agency Comment [facility] [address] [facility] [phone] Lizbeth S Bienvenido BUCHANAN-INSEAMER LAB - MICROBIOLOG Y ORDERABLES [facility] ACCOUNT BILL * STREP A SCREEN - POINT OF CARE (AMB) (06/01/2015) Only the most recent of7 resultswithin the time period is included. Strep A Rapid POCT Negative Negative Strep A Internal Control Other (qualifier value) ENTIRE THROAT (SURFACE REGION OF NECK) / Unknown 06/01/2015 Lizbeth S Bienvenido BUCHANAN-INSEAMER LAB - POINT OF CA RE ORDERABLES [...] PM CDT Narrative Resulting Agency Comment [facility] [address] [facility] [phone] Lilli Feliciano MD LAB - MICROBIOLOGY O RDERABLES [facility] ACCOUNT BILL Care Teams Iron Piler Relationship Specialty Start Date End Date Lilli Feliciano MD PCP - General Pediatrics 07/21/18
--- OUTSIDE RECORDS SUMMARY | 2024-09-14 07:54 | XMS_ITS | Clinical Summary ---
Author Organization [facility] [employer] Address [address] [facility] [place] [address] Care Team Providers Care Fabrication Welder Name Role Phone Lilli Feliciano MD Primary Care Provider [phone] Source Comments [facility] [employer],non-owned Affiliates and Associated Physician Practices is amultiple site organization consisting of ambulatory clinics and hospital sitesin [place], [place], [place] and [place]. This disclosure is being madepursuant to the Care Everywhere program and may not contain all information available regarding this patient. Last updated 18.[facility] [employer] Allergies No known active allergies Medications * [...] Type Department Care Team Description 08/18/2024 Telephone [facility] - Pediatrics [address] [place] [address] [address] [place] [address] Lilli Feliciano MD Record Request from Last 3 Months Immunizations Name Administration Dates Next Due CovEnlightened Lifestyle primary monoval ent 12+ yr 0.3mL Purple [...] CDT Oxygen Saturation 97% 06/29/2010 9:54 AM CUSTOMER SUCCESS MANAGER Inhaled Oxygen Concentration - - Weight 41.3 [...] AM CDT) Simona Price RN Care Teams Fabrication Welder Relationship Specialty Start Date End Date Lilli Feliciano MD PCP - General Pediatrics 07/21/18
--- OUTSIDE RECORDS SUMMARY | 2024-09-14 07:54 | XMS_ITS | Encounter Summary ---
Author Organization [facility] Address [address] [place] [address] Care Team Providers Care Tilt Tray Driver Name Role Phone Lilli Feliciano MD Primary Care Provider [phone] Encounter Details Date Type Department Care Team (Late st Contact Info) Description 05/25/2019 [facility] Outpatient Visit [facility] [address] [place] [address] Document, Scanned Social History Tobacco Use Types [...] on filedocumented in this encounter Care Teams Tilt Tray Driver Relationship Specialty Start Date End Date Lilli Feliciano MD PCP - General Pediatrics 07/21/18 documented as of this encounter
--- OUTSIDE RECORDS SUMMARY | 2024-09-29 07:46 | XMS_ITS | Clinical Summary ---
Author Organization [facility] Offices Address [address] [place] [address] Care Team Providers Care Education Spec Name Role Phone Unavailable Primary Care Provider [...] 11/10/2003, Additional history exists COVID-19 Vaccine ( - 2023-2 5 season) 2024 01/11/2021, 12/21/2020 HEPATITIS B VACCINES Completed 01/27/2003, 2002, 2002 Insurance [facility] BLUE ACCESS/TRUE BLUE PPO
--- OUTSIDE RECORDS SUMMARY | 2024-09-29 07:46 | XMS_ITS | Referral Summary ---
Author Organization [facility] Address [address] [facility] [place] [address] Care Team Providers Care Bpm Architect Name Role Phone Lilli Feliciano MD Primary Care Provider [phone] Source Comments [facility],non-[facility] Affiliates and Associated Physician Practices is amultiple site organization consisting of ambulatory clinics and hospital sitesin [place], [place], [place]. This disclosure is being madepursuant to the Care Everywhere program and may not contain all information available regarding this patient. Last updated 18.[facility] Encounters Date Type Department Care Team Description 08/18/2024 Telephone [facility] - Pediatrics [address] [place] [address] [address] [place] [address] Lilli Feliciano MD Record Request [...] 03/25/2017 Immunizations Name Administration Dates Next Due Affirm primary monoval ent 12+ yr 0.3mL Purple [...] CDT Oxygen Saturation 97% 06/29/2010 9:54 AM SITE SPECIALIST Inhaled Oxygen Concentration - - Weight 41.3 [...] CDT) No Simona Pineda RN Care Teams Bpm Architect Relationship Specialty Start Date End Date Lilli Feliciano MD PCP - General Pediatrics 07/21/18
--- OUTSIDE RECORDS SUMMARY | 2024-09-29 07:46 | XMS_ITS | Clinical Summary ---
Author Organization [facility] Address [address] [place] [address] Care Team Providers Care Die Maker Bench Stamping Name Role Phone Lilli Feliciano MD Primary Care Provider [phone] Source Comments [facility],non-owned Affiliates and Associated Physician Practices is amultiple site organization consisting of ambulatory clinics and hospital sitesin [place], [place], [place] and [place]. This disclosure is being madepursuant to the Care Everywhere program and may not contain all information available regarding this patient. Last updated 18.[facility] Allergies No known active allergies Medications * [...] Type Department Care Team Description 08/18/2024 Telephone [facility] - [facility] [address] [place] [address] [address] [place] [address] Lilli Feliciano MD Record Request from Last 3 Months Immunizations Name Administration Dates Next Due CoviFLYER primary monoval ent 12+ yr 0.3mL Purple [...] CDT Oxygen Saturation 97% 06/29/2010 9:54 AM JEWELRY ESTIMATOR Inhaled Oxygen Concentration - - Weight 41.3 kg (91 lb) 03/02/2021 10:48 AM CDT Height 156.2 cm (5' 1.5 ) 03/02/2021 10:48 AM CD T Body Mass Index 16.92 03/02/2021 10:48 AM CDT Plan of Treatment Health Maintenance Due Date Last Done Comments PAP SMEAR 2002 HIV SCREENING 2017 CHLAMYDIA/GONORRHEA SCREENING 2018 MENINGOCOCCAL (Group B) VACC INE SHARED DECISION-MAKING (1 of 2 - Standard) 2018 HEPATITIS [...] Additional history exists HIB VACCINE Completed 11/10/2003, 050 11/2002, 2002, Additional history exists MENINGOCOCCAL GROUPS A/C/Y/W VACCINE Completed 02/16/2019, 03/04/2014 HPV VACCINE Discontinued Goals Goal Patient Goal Type Associated Problems Recent Progress Patient-Stated? Author Use safety retraint in car Lifestyle On track( 020 11:40 AM CDT) Simona Price RN Care Teams Die Maker Bench Stamping Relationship Specialty Start Date End Date Lilli Feliciano MD PCP - General Pediatrics 07/21/18
--- OUTSIDE RECORDS SUMMARY | 2024-09-29 07:47 | XMS_ITS | Encounter Summary ---
Author Organization [facility] Health Address [address] [place] [address] Care Team Providers Care Admissions Advisor Name Role Phone Lilli Feliciano MD Primary Care Provider [phone] Encounter Details Date Type Department Care Team (Late st Contact Info) Description 05/25/2019 [facility] Outpatient Visit [facility] [address] [place] [address] Document, Scanned Social History Tobacco Use Types [...] on filedocumented in this encounter Care Teams Admissions Advisor Relationship Specialty Start Date End Date Lilli Feliciano MD PCP - General Pediatrics 07/21/18 documented as of this encounter
--- OUTSIDE RECORDS SUMMARY | 2024-09-29 07:47 | XMS_ITS | Patient Health Summary ---
Author Organization [facility] Address [address] [place] [address] Care Team Providers Care Car Ferrier Name Role Phone Lilli Feliciano MD Primary Care Provider [phone] Note from [facility],non-owned Affiliates and Associated Physician Practices is amultiple site organization consisting of ambulatory clinics and hospital sitesin [place], [place], [place] and [place]. This disclosure is being madepursuant to the Care Everywhere program and may not contain all information available regarding this patient. Last updated 18.[facility] Allergies No known active allergies Medications * [...] persistent, well-controlled 3 03/25/2017 Immunizations * Covid Parts [place] primary monovalent 12+ yr 0.3mL Purple cap(Given [...] CDT Oxygen Saturation 97% 06/29/2010 9:54 AM ACCOUNTANT CONTROLLER Inhaled Oxygen Concentration - - Weight 41.3 [...] PM CDT 03/17/2020 3:27 PM CDT [facility]ative [facility] - 03/19/2020 9:06 PM CDT Performed at: [address] [id number] Support Team Assoc: Mir Torres MD, Phone: [phone] Andrei Samayoa DO LAB - SEROLO GY ORDERABLES Performing Organization Address [facility] Co de Phone Number [facility] ([facility]) [address] [place] [address] * TISSUE TRANSGLUTAMINASE AB IGA (03/17/2020 3:14 PM CDT) Pathologist [facility] TTG Antibody IgA <2 0 - 3 U/mL 03/18/2020 6:07 PM CDT [facility] ([facility]) Comment: Negative 0 - 3 Weak Positive 4 - 10 Positive >10 Tissue Transglutaminase (tTG) has been identified as the endomysial antigen. Studies have demonstr- ated that endomysial IgA antibodies have over 99% specificity for gluten sensitive enteropathy. Blood BLOOD SPECIMEN / Unknown Venipuncture / Unknown 03/17/2020 3:14 PM CDT 03/17/2020 3:27 PM CDT Narrative [facility] ([facility]) - 03/18/2020 6:07 PM CDT Performed at: [address] [place] [id number] Support Team Assoc: Perico Bennett PhD, Phone: [phone] Andrei Reisnikkie TOBIAS LAB - SEROLO GY ORDERABLES Performing Organization Address [facility] de Phone Number [facility]) [address] [place] [address] * RHEUMATOID FACTOR BLOOD QUANTITATIVE (03/17/2020 3:14 PM CDT) [facility] Rheumatoid Factor Quantitative 12 <15 IU/mL 03/17/2020 4:05 PM CDT [facility] Blood BLOOD SPECIMEN / Unknown Venipuncture / Unknown 03/17/2020 3:14 PM CDT 03/17/2020 3:26 PM CDT Andrei Kerns Yao TOBIAS LAB - CHEMIS TRY ORDERABLES Performing Organization Address [facility] Co de Phone Number [facility] [place] [address] * C-REACTIVE PROTEIN (03/17/2020 3:14 PM CDT) Pathologist [facility] C-Reactive Protein <0.20 <=0.50 mg/dL 03/17/2020 4:05 PM CDT [facility] Blood BLOOD SPECIMEN / Unknown Venipuncture / Unknown 03/17/2020 3:14 PM CDT 03/17/2020 3:26 PM CDT Andrei Luis F Yao TOBIAS LAB - CHEMIS TRY ORDERABLES Performing Organization Address [facility] Co de Phone Number [facility] [address] [place] [phone] * JAZMIN BLOOD SCREEN W/REFLEX TITER (03/17/2020 3:14 PM CDT) [facility] JAZMIN Negative Negative 03/20/2020 12:21 PM CDT [facility] Blood BLOOD SPECIMEN / Unknown Venipuncture / Unknown 03/17/2020 3:14 PM CDT 03/17/2020 3:27 PM CDT Narrative [facility] - 03/20/2020 12:21 PM CDT Methodology: Indirect Immunofluorescence Assay (IFA) utilizing Hep-2-Gamma cells. Andrei Luis F Yao TOBIAS LAB - CHEMIS TRY ORDERABLES Performing Organization Address City/[facility] Co de Phone Number [facility] [address] [place] [address] * (ABNORMAL) COMPREHENSIVE METABOLIC PANEL (03/17/2020 3:14 PM CDT) Pathologist [facility] Glucose 83 70 - 105 mg/dL 03/17/2020 3:57 PM [facility] Sodium 142 136 - 145 mmol/L 03/17/2020 3:57 PM [facility] Potassium 4.7 3.5 - 5.1 mmol/L 03/17/2020 3:57 PM [facility] Chloride 108(H) 98 - 107 mmol/L 03/17/2020 3:57 PM [facility] CO2 22 20 - 28 mmol/L 03/17/2020 3:57 PM [facility] Calcium 9.05(L) 9.08 - 10.48 mg/dL 03/17/2020 3:57 PM [facility] Anion Gap 12 5 - 20 mmol/L 03/17/2020 3:57 PM [facility] BUN 10.9 5.3 - 18.7 mg/dL 03/17/2020 3:57 PM [facility] Creatinine 0.79 0.61 - 1.07 mg/dL 03/17/2020 3:57 PM [facility] Alkaline Phosphatase 56(L) 100 - 390 U/L 03/17/2020 3:57 PM [facility] ALT 13 8 - 65 U/L 03/17/2020 3:57 PM [facility] AST 26 3 - 35 U/L 03/17/2020 3:57 PM [facility] Protein Total 7.4 6.3 - 8.2 gm/dL 03/17/2020 3:57 PM [facility] Albumin 4.2 3.3 - 4.9 gm/dL 03/17/2020 3:57 PM [facility] Bilirubin Total 0.7 0.3 - 1.2 mg/dL 03/17/2020 3:57 PM [facility] eGFR by MDRD 03/17/2020 3:57 PM [facility] Comment: eGFR calculations are not performed for children under 18 years old. eGFR by MDRD 03/17/2020 3:57 PM [facility] Comment: eGFR calculations are not performed for children under 18 years old. Blood BLOOD SPECIMEN / Unknown Venipuncture / Unknown 03/17/2020 3:14 PM CDT 03/17/2020 3:26 PM [facility] Andrei Samayoa DO LAB - CHEMIS TRY ORDERABLES Performing Organization Address City/[facility]/ZIP Co de Phone Number [facility] [address] [place] [address] * TSH (03/17/2020 3:14 PM CDT) TSH 0.97 0.35 - 4.95 uIU/mL 03/17/2020 4:25 PM CDT [facility] Blood BLOOD SPECIMEN / Unknown Venipuncture / Unknown 03/17/2020 3:14 PM CDT 03/17/2020 3:26 PM CDT Andrei Samayoa DO LAB - CHEMIS TRY ORDERABLES Performing Organization Address [facility] Co de Phone Number [facility] [address] [place] [address] * MRI TMJ BILATERAL JOINTS (03/17/2020 3:13 [...] 03/19/2020 at 2:23 PM Lupe Mirian Fransisco LITHOGRAPH OPERATOR-ASSEMBLER INSULATOR MR ORDERABLES * ESR - SED RATE WESTERGREN AUTO (03/17/2020 3:13 PM CDT) [facility] Erythrocyte Sedimentation Rate Automated 3 0 - 20 MM/HR 03/17/2020 3:43 PM CDT [facility] Blood BLOOD SPECIMEN / Unknown Venipuncture / Unknown 03/17/2020 3:13 PM CDT 03/17/2020 3:26 PM CDT Andrei Samayoa DO LAB - HEMATO LOGY ORDERABLES Performing Organization Address City/State/[facility] Co de Phone Number [facility] [address] [place] [address] * (ABNORMAL) CBC W AUTO DIFFERENTIAL (03/17/2020 3:13 PM CDT) Pathologist [facility] WBC 11.0 4.5 - 11.0 x10E9/L 03/17/2020 3:45 PM CDT [facility] WBC Corrected 03/17/2020 3:45 PM CDT [facility] RBC 4.82 4.10 - 5.10 x10E12/L 03/17/2020 3:45 PM CDT [facility] Hemoglobin 13.4 12.0 - 16.0 gm/dL 03/17/2020 3:45 PM [facility] Hematocrit 40.6 36.0 - 47.0 % 03/17/2020 3:45 PM [facility] MCV 84.2 78.0 - 98.0 fl 03/17/2020 3:45 PM [facility] MCH 27.8 25.0 - 35.0 pg 03/17/2020 3:45 PM [facility] MCHC 33.0 31.0 - 37.0 gm/dL 03/17/2020 3:45 PM [facility] Platelet Count 328 100 - 400 x10E9/L 03/17/2020 3:45 PM [facility] RDW-CV 12.7 11.5 - 14.0 % 03/17/2020 3:45 PM [facility] MPV 10.5(H) 6.0 - 9.5 fl 03/17/2020 3:45 PM [facility] Neutrophils % 63.0 31.0 - 78.0 % 03/17/2020 3:45 PM [facility] Lymphocytes % 28.9 13.0 - 54.0 % 03/17/2020 3:45 PM [facility] Monocytes % 6.8 4.0 - 13.0 % 03/17/2020 3:45 PM [facility] Eosinophils % 0.5 0.0 - 8.0 % 03/17/2020 3:45 PM [facility] Basophils % 0.5 % 03/17/2020 3:45 PM [facility] Immature Granulocytes 0.3 % 03/17/2020 3:45 PM [facility] Neutrophil Absolute 6.90 1.4 - 8.58 x10E9/L 03/17/2020 3:45 PM [facility] Lymphocytes Absolute 3.16 0.59 - 5.94 x10E9/L 03/17/2020 3:45 PM [facility] Monocytes Absolute 0.75 0.18 - 1.43 x10E9/L 03/17/2020 3:45 PM [facility] Eosinophils Absolute 0.06 0 - 0.88 x10E9/L 03/17/2020 3:45 PM [facility] Basophils Absolute 0.05 0 - 0.22 x10E9/L 03/17/2020 3:45 PM CDT [facility] Immature Granulocytes Absolute 0.03 0 - 0.11 x10E9/L 03/17/2020 3:45 PM CDT [facility] nRBC Auto 0 /100 WBC 03/17/2020 3:45 PM CDT [facility] Blood BLOOD SPECIMEN / Unknown Venipuncture / Unknown 03/17/2020 3:13 PM CDT 03/17/2020 3:26 PM CDT Andrei Samayoa DO LAB - HEMATO LOGY ORDERABLES Performing Organization Address City/[facility]/ZIP Co de Phone Number [facility] [place] [address] * IMMUNOGLOBULINS PANEL (inc IgA, IgG, IgM) (03/17/2020 3:13 PM CDT) IgA 127 65 - 421 mg/dL 03/17/2020 4:05 PM CDT [facility] IgG 967 552-1,631 mg/dL 03/17/2020 4:05 PM CDT [facility] IgM 84 33 - 293 mg/dL 03/17/2020 4:05 PM CDT [facility] Blood BLOOD SPECIMEN / Unknown Venipuncture / Unknown 03/17/2020 3:13 PM CDT 03/17/2020 3:26 PM CDT Andrei Samayoa DO LAB - CHEMIS TRY ORDERABLES Performing Organization Address City/[facility]/ZIP Co de Phone Number [facility] [address] [place] [phone] * XR ANKLE LEFT 2VW (03/17/2020 1:57 [...] on 03/17/2020 at 4:32 PM Lupe Moody LITHOGRAPH OPERATOR-ASSEMBLER INSULATOR CT ORDERABLES * LIPID PROFILE+GLUCOSE - POINT [...] CULTURE STREP GROUP A (06/01/2015 1:43 PM ACCOUNTANT CONTROLLER) Beta-Strep Culture, Group A Only Negative [facility] ACCOUNT BILL Miscellaneous samples (specimen) ENTIRE THROAT (SURFACE REGION OF NECK) / Unknown 06/01/2015 1:43 PM ACCOUNTANT CONTROLLER 06/01/2015 8:30 PM ACCOUNTANT CONTROLLER Narrative Resulting Agency Comment [facility] [address] [id number] Lizbeth S Bienvenido BUCHANAN-ASSEMBLER INSULATOR LAB - MICROBIOLOG Y ORDERABLES [facility] ACCOUNT BILL * STREP A SCREEN - POINT OF CARE (AMB) (06/01/2015) Only the most recent of7 resultswithin the time period is included. Strep A Rapid POCT Negative Negative Strep A Internal Control Other (qualifier value) ENTIRE THROAT (SURFACE REGION OF NECK) / Unknown 06/01/2015 Lizbeth S Bienvenido BUCHANAN-ASSEMBLER INSULATOR LAB - POINT OF CA RE ORDERABLES [...] PM CDT Narrative Resulting Agency Comment [facility] [address] [facility] [address] [facility] [id number] Lilli Feliciano MD LAB - MICROBIOLOGY O RDERABLES [facility] ACCOUNT BILL Care Teams Car Ferrier Relationship Specialty Start Date End Date Lilli Feliciano MD PCP - General Pediatrics 07/21/18
--- NOTE | 2024-10-09 19:58 | P.SLEEP_ITS ---
Sleep Study - Home Unattended Date of Study: 09/29/24 Ordering Provider: Moo Adhikari MD Interpreting Provider: Kelly Kasper MD Home Sleep Study Type: Watch PAT Height: 1.55 m Weight: 46.72 kg Body Mass Index: 19.4 Neck Circumference (inches): 12.75 Spring: 13 Reason for Sleep Study Hypersomnolence Sleep History Neisha Buck is 24 years old, does not complain of loud snoring or witnessed apneas. She does have difficulty breathing when she is on her back. She does wake with a morning headache and has a dry mouth in the morning. She does not have heartburn at night. She does not wake at night to go to the bathroom. When she awakens during the night she does had difficulty returning to sleep. She has anxiety about her sleep per it. She does not feel refreshed on waking. She is sleepy during the day and she has drowsy driving. She clenches or grinds her teeth at night, she has excessive leg jerking during the night and she has restless feeling in her legs. She has an urge to move her legs which gets better with activities but it is not worse with rest. This occurs only in the evenings or the nighttime, and this causes concern. She has moderate difficulty staying asleep, she has significant difficulty in her daytime functioning due to poor sleep and her poor quality of sleep is noticeable to other people. She is somewhat worried about her sleep. She has an insomnia severity index of 13 which is moderate. Normal bedtime is 10:30 p.m. falling asleep within 15 minutes spending 8 hours in bed, 7 hours of sleep. She has a similar schedule on days off, bedtime 11 30 p.m., 15 minutes fall asleep, 10 hours in bed, 9 hours of sleep. She somewhat restored after sleeping on a day off. She takes planned naps in the afternoon lasting 1-2 hours, and a nap may be restorative. She is more alert in the evening compared to the mornings. Habits: Tobacco: none Caffeine: 1-2 cups daily Alcohol: none regularly Recreational substances: none PMFSH Past Medical History Medical History Family history of carcinoma in situ of anal canal Irritable bowel syndrome with diarrhea LLQ discomfort Fecal incontinence Diarrhea BMI less than 19,adult Family History Family History Grandparent Diabetes mellitus Social History Social History Social History: Caffeine-soda Smoking status: Never smoker Alcohol intake: never Substance use: never Substance use type: does not use Do You Feel Safe in your Home?: Yes Lack of Transportation: No Lack of Food: Never True Current Housing: I Have Housing Concerned About Future Housing: No Difficulty Paying Gas/Electric Bills: No Difficulty Paying for Meds: No Currently Unemployed: No Education: High School Diploma/GED Difficulty w/ Childcare or Family Care: No Living arrangements: with family Occupation/Education: student Gender identity (if verbalized by the patient): Female Sexual Orientation (if Verbalized by the Patient): Straight or Heterosexual Spiritual care concerns: No Agree to blood products: Yes Medications Home Medications ?Medication ?Instructions ?Recorded ?Confirmed ?Type cetirizine 10 mg capsule (Zyrtec) 10 mg PO DAILY PRN 01/03/22 10/11/24 History duloxetine 30 mg capsule,delayed 30 mg PO DAILY #90 caps 10/01/24 10/11/24 Rx release norethindrone 1 mg-ethinyl 1 tablet PO DAILY #84 tabs 10/13/24 Rx estradiol 20 mcg (24)-iron 75 mg (4) tablet (Lupe 24 Fe) Sleep Procedure The sleep study was completed using [employer] FloatT a technically adequate device with seven channels: peripheral arterial tone, actigraphy, body position, snore, respiratory movement, pulse oximetry, sleep staging, and heart rate. Prior to using the device, the patient received verbal and written instructions for its application and was provided with the help desk phone number for additional telephonic instruction with 24-hour availability of qualified personnel to answer questions. Sleep Architecture The total recording time is 8 hrs, 1 min. The total sleep time is 7 hrs, 12 min. Sleep latency is 6 minutes. REM latency is 29 minutes. The patient had 9 episodes of waking. Sleep architecture shows 10.3% deep sleep, 73.1% light sleep, and 16.6% stage REM. The patient spent 44.7% of total sleep time in the supine position. Sleep efficiency was 89%. Respiratory Analysis The overall AHI (pAHI 3%:) is 7.8. The central AHI is 0.9. The AHI was 8.5 in NREM and 4.3 in REM sleep. The AHI was 6.8 in Supine and 8.6 in Non-supine sleep. Percent of Tre Roth respirations is 0.0. The patient slept in the prone position for 34 minutes, 7.9% of the night, with an apnea hypopnea index of 14.5. Oximetry Data The oxygen desaturation index (MELODY 4%:) is 1.9. The mean saturation is 96%, and the lowest saturation is 86%. Time spent with saturation < 88% is 0.0 minutes. Snoring Profile Snoring average intensity is 41 dB. The patient snored above 45 decibels for 12.3 minutes, 2.8% of sleep time. Cardiac Profile The average pulse rate is 85 beats per minutes. The lowest pulse rate is 59 bpm. The highest pulse rate is 131. Cardiac Rhythm Analysis in Sleep shows 8 minutes 48 seconds with suspected atrial fibrillation. This is above normal. This does not prove atrial fibrillation but suggested further investigation should be considered. Assessment and Plan Assessment and Plan (1) Obstructive sleep apnea: Code(s): G47.33 - Obstructive sleep apnea (adult) (pediatric) Status: Acute Assessment and Plan: This home sleep test using WatchPat on 09/29/2024 shows an overall apnea hypopnea index of 7.8, consistent with mild obstructive sleep apnea using a 3% criteria, desaturation to 86%, snoring, and suspected atrial fibrillation based on the cardiac rhythm analysis in sleep. The longest episode of suspected atrial fibrillation was 1 minute 52 seconds. The total amount of time suspected to show atrial fibrillation is 8 minute 48 seconds. Due to the concern for atrial fibrillation and tachycardia, this patient would benefit from CPAP titration in the sleep lab with a sleep aid to use, if needed, to get to sleep and stay asleep for the titration. She should not nap on the day of the titration. Sleep aids to consider include Ambien 5 mg to 10 mg or Lunesta 2 mg to 3 mg. The sleep aid should not be taken at home, only at the sleep lab if needed at the start of the test. Data The data obtained during this sleep study is adequate for interpretation. Certification This sleep study has been reviewed by a board certified sleep medicine physician.
[2024-10-15 20:07] VITALS: BMI 19.4
== END 2024-09-30 12:53 | disposition home or self-care (01) ==
LOC: ANHCSM 07:43
PROVIDERS: PCP Family Medicine; Visit Provider Otolaryngology Otolaryngology/Facial Plastic Surgery
DX: G47.30 Sleep apnea, unspecified (principal); R06.83 Snoring; J34.2 Deviated nasal septum
CPT/HCPCS: 95800

== ENCOUNTER 2025-05-11 09:54 | Outpatient (CLI) | payer BC, SELFPAY ==
--- NOTE | 2025-05-11 10:33 | ECG_ITS ---
Test Date: 2025-05-11 10:42:01 Measurements Intervals Bonnyman Rate: 100 P: 31 OK: 134 QRS: 39 QRSD: 80 T: 43 QT: 318 QTc: 411 Interpretive Statements SINUS TACHYCARDIA NONSPECIFIC T-WAVE ABNORMALITY- INFERIOR LEADS BASELINE ARTIFACT- II, III, AVF BORDERLINE ECG No previous ECG available for comparison Electronically Signed On 05-11-2025 11:12:53 CDT by Federico Baldwin D.O.
--- NOTE | 2025-05-19 16:22 | WPDHOLTEREM ---
Holter/Event Monitor Holter/Event Monitor Date of procedure: 05/11/25 Holter/Event Procedure: 3-7 Day Holter Monitor Indications: Cardiac arrhythmia Conclusion: 1. 3 days holter monitor on 05/11/25. 2. Underlying rhythm is sinus rhythm. HR range 58-159 bpm; average HR 97 bpm. HR at 159 bpm was on 05/14/25 at 6:41 am. 3. There are intermittent premature supraventricular complexes with burden of 6.4%, rare supraventricular couplets. No supraventricular tachycardia. 4. There are rare premature ventricular complexes. No ventricular tachycardia. 5. No significant pauses greater than 3 seconds. 6. Patient reports 2 episodes of symptoms of heart pounding which demonstrate sinus rhythm, HR range 95-101 bpm with both episodes with PAC's.
== END 2025-05-11 09:55 | disposition home or self-care (01) ==
PROVIDERS: PCP Family Medicine; Visit Provider Physician Assistant Medical
DX: I49.9 Cardiac arrhythmia, unspecified (principal); R94.31 Abnormal electrocardiogram [ECG] [EKG]; Z86.79 Personal history of other diseases of the circulatory system
CPT/HCPCS: 93005; 93242

== ENCOUNTER 2025-06-01 09:47 | Outpatient (CLI) | payer BC, SELFPAY ==
--- NOTE | 2025-06-01 10:00 | ECHO_ITS ---
Patient Info Name: Neisha Buck Age: 25 years : 2000 Gender: Female Ht: 61 in Wt: 105 lbs BSA: 1.43 m2 HR: 103 bpm BP: 117 / 86 mmHg Heart Rhythm: Tachycardia Technical Quality: Good Exam Date: 06/01/2025 10:06 AM Patient Status: O Admit Date: 06/01/2025 Exam Type: CA echo doppler color flow Complete two-dimensional, color flow and Doppler transthoracic echocardiogram is performed. [employer] Mechanical: Brisa Muller Attending Provider: Rhianna Tolentino Summary 1. Complete two-dimensional, color flow and Doppler transthoracic echocardiogram is performed. 2. Left ventricular chamber dimension is normal. 3. Left ventricular systolic function is normal, estimated at 65-70. 4. The left ventricular diastolic function is normal. 5. E/e' 7 is not elevated. 6. There is mild tricuspid valve regurgitation. 7. No pulmonary hypertension, estimated pulmonary arterial systolic pressure is 21 mmHg. Left Ventricle E/e' 7 is not elevated. Left ventricular chamber dimension is normal. Left ventricular systolic function is normal, estimated at 65-70. The left ventricular diastolic function is normal. Right Ventricle Right ventricular chamber dimension is normal. Right ventricular systolic function is normal and with normal TAPSE 2.1 cm. Left Atria Left atrial chamber dimension is normal. Right Atria Right atrial chamber dimension is normal. Aortic Valve The aortic valve is trileaflet. There is no aortic valve stenosis. There is no aortic valve regurgitation. Pulmonic Valve There is no pulmonic regurgitation. Mitral Valve There is no mitral valve stenosis. There is no mitral valve regurgitation. Tricuspid Valve There is mild tricuspid valve regurgitation. No pulmonary hypertension, estimated pulmonary arterial systolic pressure is 21 mmHg. Pericardium/Pleural There is no pericardial effusion. Inferior Vena Cava Normal inferior vena cava with >50% collapse upon inspiration consistent with normal right atrial pressure, 5 mmHg. Aorta The aortic root size at the sinus of Valsalva is normal. Left Ventricular Outflow Tract Name Value Normal LVOT 2D LVOT Diameter 2.0 cm LVOT Doppler LVOT Peak Velocity 100 cm/s LVOT Peak Gradient 4 mmHg LVOT Mean Gradient 2 mmHg LVOT VTI 16 cm LVOT VTI/AV VTI Ratio 0.5 LVOT Stroke Volume 50 ml LVOT CO 5.4 l/min LVOT CI 3.8 l/min/m2 Pulmonic Valve Name Value Normal RVOT Doppler RVOT Peak Velocity 99 cm/s RVOT Peak Gradient 4 mmHg PV Doppler PV Peak Velocity 129 cm/s PV Peak Gradient 7 mmHg Mitral Valve Name Value Normal MV Diastolic Function MV E Peak Velocity 103 cm/s MV A Peak Velocity 86 cm/s MV E/A 1.2 MV Decel Time (PW) 74 ms MV Annular TDI MV E/e' (Septal) 9.5 MV E/e' (Lateral) 6.0 MV E/e' (Average) 7.8 Tricuspid Valve Name Value Normal TV Regurgitation Doppler TR Peak Velocity 202 cm/s TR Peak Gradient 16 mmHg Estimated PAP/RSVP RA Pressure 5 mmHg <=5 PA Systolic Pressure 21 mmHg <36 RV Systolic Pressure 21 mmHg <36 TV Annular TDI TV Lateral Cathy s' Velocity 14.1 cm/s >=9.5 Aorta Name Value Normal Ascending Aorta Ao Root Diameter (MM) 3.1 cm Ao Root Diam Index (MM) 2.1 cm/m2 Aortic Valve Name Value Normal AV Doppler AV Peak Velocity 153 cm/s AV Peak Gradient 9 mmHg AV Mean Gradient 5 mmHg AV VTI 29 cm AV Area (Cont Eq VTI) 1.7 cm2 >=3.0 AV Area (Cont Eq Justo) 2.1 cm2 AV DI (Justo) 0.65 AV Regurgitation 2D LVOT Area 3.1 cm2 Ventricles Name Value Normal LV Dimensions 2D/MM IVS Diastolic Thickness (2D) 0.8 cm 0.6-1.0 LVID Diastole (2D) 4.5 cm 3.8-5.2 LVIW Diastolic Thickness (2D) 0.8 cm 0.6-0.9 LVID Systole (2D) 3.0 cm 2.2-3.5 LVOT Diameter 2.0 cm LV Mass (2D Cubed) 108.02 g 67.00-162.00 LV Mass Index (2D Cubed) 76 g/m2 43-95 Relative Wall Thickness (2D) 0.34 <=0.42 LV Fractional Shortening/Ejection Fraction 2D/MM LV Fractional Shortening (2D) 32 % 27-45 LV EF (2D Teichholz) 60 % LV Diastolic Volume (4C MOD) 71 ml LV EF (4C MOD) 68 % LV Diastolic Volume (2C MOD) 64 ml LV EF (2C MOD) 64 % LV Diastolic Volume (BP MOD) 69 ml 46-106 LV Diastolic Volume Index (BP MOD) 48 ml/m2 29-61 LV Systolic Volume (BP MOD) 23 ml 14-42 LV Systolic Volume Index (BP MOD) 16 ml/m2 8-24 LV EF (BP MOD) 66 % 54-74 LV Diastolic Length (4C) 6.1 cm LV Systolic Length (4C) 4.8 cm LV Stroke Volume (4C MOD) 49 ml Atria Name Value Normal LA Dimensions LA Dimension (MM) 2.7 cm 2.7-3.8 LA Volume (4C A-L) 32 ml LA Volume (BP A-L) 31 ml RA Dimensions RA Area (4C) 12.2 cm2 <=18.0 Report Signatures
--- OUTSIDE RECORDS SUMMARY | 2025-06-01 10:47 | XMS_ITS | Clinical Summary ---
Author Organization [facility] Address [address] [place] [address] Care Team Providers Care Catering Server Name Role Phone Lilli Feliciano MD Primary Care Provider [phone] Source Comments [facility],non-owned Affiliates and Associated Physician Practices is amultiple site organization consisting of ambulatory clinics and hospital sitesin [place], [place], [place] and [place]. This disclosure is being madepursuant to the Care Everywhere program and may not contain all information available regarding this patient. Last updated 18.[employer] [facility] Allergies No known active allergies Medications * Be aware that medications may not be up to date on this document. Alwaysverify current medications with the patient. albuterol HFA (PROVENTIL HFA) 108 (90 Base) [...] Asthma, moderate persistent, well-controlled 3 03/25/2017 Immunizations Immunization Administration Dates Next Due [facility] primary monoval ent 12+ yr 0.3mL Purple cap 01/11/2021,12/21/2020 DTaP VACCINE IM (6wk-6yrs) 10/30/2007,,2002,09/03,2002 HEP A PEDS 2 DOSE 10/30/2007,12/18/2006 HEP B VACCINE, PED/ADOL 01/27/2003,2002, HIB BOOSTER 11/10/2003, 3,2002,07/02 MENINGOCOCCAL ACWY (MCV4P) VAC IM 02/16/2019, MMR 12/18/2006,05/09/2003 PNEUMOCOCCAL CONJ, PEDS 05/09/2003,11/22,2002,07/02 POLIO [...] Date Recorded PHQ2 TOTAL SCORE 1 03/02/2021 Comments No Sex and Gender Information Value Date Recorded Sex Assigned at Not on file Legal Sex 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 Gender Identity Not on file Sexual Orientation Not on file Last Filed Vital Signs Vital Sign Reading Time Taken Comments Blood Pressure 110/80 03/02/2021 10:48 AM CDT Pulse 65 03/02/2021 10:48 AM CDT Temperature 36.5 C (97.7 F) 03/02/2021 10:48 AM CDT Respiratory Rate 16 05/12/2020 3:10 PM CDT Oxygen Saturation 97% 06/29/2010 9:54 AM RAILROAD 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 SERVICES MANAGER Inhaled Oxygen Concentration - - Weight 41.3 kg (91 lb) 03/02/2021 10:48 AM CDT Height 156.2 cm (5' 1.5) 03/02/2021 10:48 AM CD T Body Mass Index 16.92 03/02/2021 10:48 AM CDT Plan of Treatment Health Maintenance Due Date Last Done Comments HIV SCREENING 2017 CHLAMYDIA/GONORRHEA SCREENING 2018 MENINGOCOCCAL (Group B) VACC INE SHARED DECISION-MAKING (1 of 2 - Standard) 2018 HEPATITIS C SCREENING 04/19/2020 PAP SMEAR 2023 DTAP/TDAP/TD VACCINES (7 - T d or Tdap) 03/04/2024 03/04/2014, 10/30/2007, 11/10/2003, Additional history exists DEPRESSION SCREENING 07/21/2024 COVID-19 VACCINE (3 - 2024-2 6 season) 2025 01/11/2021, 12/21/2020 INFLUENZA VACCINE (#1) 2025 ZOSTER VACCINE (1 of 2) 2052 HEPATITIS B VACCINE Completed 01/27/2003, 2002, 2002 PNEUMOCOCCAL VACCINE Completed 05/09/2003, 2002, 2002, Additional history exists HIB VACCINE Completed 11/10/2003, 11/2002, 2002, Additional history exists MENINGOCOCCAL GROUPS A/C/Y/W VACCINE Completed 02/16/2019, 03/04/2014 HPV VACCINE Discontinued Goals Goal Patient Goal Type Associated Problems Recent Progress Patient-Stated? Author Use safety retraint in car Lifestyle On track( 020 11:40 AM CDT) Simona Price RN Insurance ANTHEM ANTHEM [employer]HEAL [address] [id number] Care Teams Catering Server Relationship Specialty Start Date End Date Lilli Feliciano MD PCP - General Pediatrics 07/21/18
--- OUTSIDE RECORDS SUMMARY | 2025-06-01 10:47 | XMS_ITS | Clinical Summary ---
Author Organization [facility] Administrative Offices Address [address] [place] [id number] Care Team Providers Care Financial Planning Consultant Name Role Phone Unavailable Primary Care Provider [...] 3-dose series) 2017 CERVICAL CANCER SCREENING 2023 HPV/Cotest (21-29) 2023 PAP SMEAR 2023 DTAP/TDAP/TD VACCINES (7 - T d or Tdap) 03/04/2024 03/04/2014, 10/30/2007, 11/10/2003, Additional history exists INFLUENZA VACCINE (#1) 2025 COVID-19 Vaccine (3 - 2024-2 6 season) 2025 01/11/2021, 12/21/2020 HEPATITIS B VACCINES Completed 01/27/2003, 2002, 2002 Insurance [employer] BLUE ACCESS/TRUE BLUE PPO
--- OUTSIDE RECORDS SUMMARY | 2025-06-01 10:47 | XMS_ITS | Patient Health Record ---
Author Organization [facility] [employer] [facility] Address [address] [place] [address] Support Name Relationship Address Phone LUIS LOUIE Emergency Contact Unknown [phone] Guarantor Unknown [phone] Reason For Referral No Information Medications Medication SIG (Take, Route, Frequency, Duration) Notes Start Date End Date Status FE 08/09 1-20 MG-MCG Tablet Oral 02/11/2022 Active busPIRone HCl 7.5 MG Tablet Oral 02/11/2022 Active Lupe Fe 08/09 1-20 MG-MCG Tablet Oral 02/11/2022 Active predniSONE 10 MG Tablet Oral 02/11/2022 Active Lupe 24 FE 1 mg-20 mcg (24)/75 mg (4) Tablet Oral *Pick strength-form from [facility] for eRX* 02/11/2022 Active Citalopram Hydrobromide 10 MG Tablet Oral 02/11/2022 Active Immunizations Vaccine Route Administration Date Status Comme nts Pfizer Biontech Covid-19 Vac cine 2nd dose Unknown 12/21/2020 Administered Pfizer Biontech Covid-19 Vac cine 2nd dose Unknown 01/11/2021 Administered Social History Social History Additional Details Category Social Info Options Details Migrated Social History Migrated Social History Alcohol Intake: None 02/11/2022,Tobacco Years: Never smoker 02/11/2022 Plan Of Treatment No Information Insurance Providers Payer Name Payer Address Payer Phone Subscriber Number Group Number Insured Name Patient Relationship to Insured Coverage Start Date Coverage End Date [employer] [employer] [address] [place] [address] [id number] LUIS LOUIE [facility] Child - Insured has Financial Responsibility
--- OUTSIDE RECORDS SUMMARY | 2025-06-01 10:47 | XMS_ITS | Encounter Summary ---
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 Author Use safety retraint in car Lifestyle On track( 020 11:40 AM CDT) Simona Price RN documented as of this encounter Visit Diagnoses Not on filedocumented in this encounter Care Teams Unloader Operator Relationship Specialty Start Date End Date Lilli Feliciano MD PCP - General Pediatrics 07/21/18 documented as of this encounter
== END 2025-06-01 09:48 | disposition home or self-care (01) ==
LOC: ANHCARD 09:50
PROVIDERS: PCP Family Medicine; Visit Provider Physician Assistant Medical
DX: I49.9 Cardiac arrhythmia, unspecified (principal); I36.1 Nonrheumatic tricuspid (valve) insufficiency; Z86.79 Personal history of other diseases of the circulatory system
CPT/HCPCS: 93306